=== PATIENT | male | born 1980 | race Caucasian/White ===

== ENCOUNTER 2017-02-05 14:35 | Emergency (ER) | payer MEDICAID ==
--- NOTE | 2017-02-05 15:20 | Emergency Department Record ---
History of Present Illness - General Chief complaint: Pain Stated complaint: RT RIB PAIN Time Seen by Provider: 02/05/17 15:14 Source: Patient, RN notes reviewed Mode of Arrival: Ambulatory - History of Present Illness Initial comments: right rib cage pain which started after a cough and he has had similiar problems like this in the past. smoker with a chronic cough Onset/Timin -: Days(s) Location: Right Severity scale (1-10): 8 Quality: Aching Improves with: Rest Associated Symptoms: Denies other symptoms - Related Data Home Medications Medication Instructions Recorded Confirmed Last Taken Albuterol Sulfate [Ventolin Hfa] 1 - 2 puff IH .EVERY 4-6 HRS PRN 02/05/1702/05 1 Day Ago ~02/04/17 Omeprazole 40 mg PO DAILY 02/05/17 02/05/17 1 Day Ago ~02/04/17 Previous Rx's Medication Instructions Recorded Hydrocodone/Acetaminophen [[place] 1 each PO Q6HR #14 tablet 02/05/17 5-325 Tablet] Naproxen [Naprosyn] 500 mg PO Q12H #30 tab.dr 02/05/17 Allergies Allergy/AdvReac Type Severity Reaction Status Date / Time No Known Drug Allergies Allergy Verified 02/05/17 14:51 Travel Screening - Travel/Exposure Within Last 30 Days Have you traveled within the last 30 days?: No - Travel/Exposure Within Last Year Have you traveled outside the [place] in the last year?: No - Additonal Travel Details Have you been exposed to anyone with a communicable illness?: No - Travel Symptoms Symptom Screening: None Review of Systems Reviewed: No additional complaints except as noted below Constitutional: Reports: As per HPI. Denies: Chills, Fever, Malaise, Night sweats, Weakness, Weight change Eyes: Reports: As per HPI. Denies: Eye discharge, Eye pain, Photophobia, Vision change ENT: Reports: As per HPI. Denies: Congestion, Dental pain, Ear pain, Epistaxis , Hearing loss, Throat pain Respiratory: Reports: As per HPI. Denies: Cough, Dyspnea, Hemoptysis, Stridor, Wheezes Cardiovascular: Reports: As per HPI. Denies: Arrhythmia, Chest pain, Dyspnea on exertion, Edema, Murmurs, Orthopnea, Palpitations, Paroxysmal nocturnal dyspnea, Rheumatic Fever, Syncope Endocrine: Reports: As per HPI. Denies: Fatigue, Heat or cold intolerance, Polydipsia, Polyuria Gastrointestinal: Reports: As per HPI. Denies: Abdominal pain, Constipation, Diarrhea, Hematemesis, Hematochezia, Melena, Nausea, Vomiting Genitourinary: Reports: As per HPI. Denies: Dysuria, Frequency, Hematuria, Incontinence, Retention, Testicular pain, Testicular mass, Urgency Musculoskeletal: Reports: As per HPI. Denies: Arthralgia, Back pain, Gout, Joint swelling, Myalgia, Neck pain Skin: Reports: As per HPI. Denies: Bruising, Change in color, Change in hair/ nails, Lesions, Pruritus, Rash Neurological: Reports: As per HPI. Denies: Abnormal gait, Confusion, Headache, Numbness, Paresthesias, Seizure, Tingling, Tremors, Vertigo, Weakness Psychiatric: Reports: As per HPI. Denies: Anxiety, Auditory hallucinations, Depression, Homicidal thoughts, Suicidal thoughts, Visual hallucinations Hematological/Lymphatic: Reports: As per HPI. Denies: Anemia, Blood Clots, Easy bleeding, Easy bruising, Swollen glands Past Medical History - SOCIAL HISTORY Smoking Status: Current some day smoker Alcohol Use: None Drug Use: None - RESPIRATORY Hx Asthma: Yes - CARDIOVASCULAR Hx Cardio Disorders: No - NEURO Hx Neuro Disorders: No - GI Hx GI Disorders: No - Hx Genitourinary Disorders: No - ENDOCRINE Hx Endocrine Disorders: No - MUSCULOSKELETAL Hx Musculoskeletal Disorders: No - PSYCH Hx Psych Problems: No - HEMATOLOGY/ONCOLOGY Hx Hematology/Oncology Disorders: No Family Medical History Any Significant Family History?: Yes Physical Exam - General General Appearance: Alert, Oriented x3, Cooperative, No acute distress - Head Head exam: Normal inspection - Eye Eye exam: Normal appearance, PERRL Pupils: Normal accommodation - ENT ENT exam: Normal exam, Mucous membranes moist, Normal external ear exam, Normal orophraynx, TM's normal bilaterally Ear exam: Normal external inspection. negative: External canal tenderness Nasal Exam: Normal inspection. negative: Discharge, Sinus tenderness Mouth exam: Normal external inspection, Tongue normal Teeth exam: Normal inspection. negative: Dental caries Throat exam: Normal inspection. negative: Tonsillar erythema, Tonsillar exudate - Neck Neck exam: Normal inspection, Full ROM. negative: Tenderness - Respiratory Respiratory exam: Normal lung sounds bilaterally, Other (reproducible pain on palpation right chest wall). negative: Respiratory distress - Cardiovascular Cardiovascular Exam: Regular rate, Normal rhythm, Normal heart sounds - GI/Abdominal GI/Abdominal exam: Soft, Normal bowel sounds. negative: Tenderness - Rectal Rectal exam: Deferred - exam: Deferred - Extremities Extremities exam: Normal inspection, Full ROM, Normal capillary refill. negative: Tenderness - Back Back exam: Reports: Normal inspection, Full ROM. Denies: Muscle spasm, Rash noted, Tenderness - Neurological Neurological exam: Alert, Normal gait, Oriented X3, Reflexes normal - Psychiatric Psychiatric exam: Normal affect, Normal mood - Skin Skin exam: Dry, Intact, Normal color, Warm Course Vital Signs 02/05/17 14:43 Temperature 98.2 F Pulse Rate 64 Respiratory 18 Rate Blood Pressure 135/94 Pulse Ox 98 Medical Decision Making - Data Complexity MDM Data: X-Ray Ordered and/or Reviewed (chest xray neg) Disposition Clinical Impression: Thoracic myofascial strain Qualifiers: Encounter type: initial encounter Qualified Code(s): S29.019A - Strain of muscle and tendon of unspecified wall of thorax, initial encounter Disposition: Home, Self-Care Condition: (1) Good Instructions: Musculoskeletal Pain (ED) Additional Instructions: heat to chest follow up with primary in 4 days Prescriptions: Hydrocodone/Acetaminophen [[place] 5-325 Tablet] 1 each PO Q6HR #14 tablet Naproxen [Naprosyn] 500 mg PO Q12H #30 tab.dr Forms: Patient Portal Access Time of Disposition: 16:02 Quality - Quality Measures Quality Measures: N/A - Blood Pressure Screening Does Patient Have Any of the Following: No Blood Pressure Classification: Hypertensive Reading Systolic Measurement: 135 Diastolic Measurement: 94 Screening for High Blood Pressure: < First Hypertensive BP, F/U Documented > [ G8950] First Hypertensive Follow-up Interventions: Referral to alternative/primary care provider.
--- NOTE | 2017-02-06 11:33 | RADIOLOGY REPORT ---
EXAM: CHEST 2 VIEWS HISTORY: DIFFICULTY IN BREATHING. TECHNIQUE: Frontal and lateral views of the chest were performed. FINDINGS: The heart size is normal. No pulmonary vascular congestion. No definitive rib fracture deformity. No pneumothorax. IMPRESSION: NEGATIVE CHEST EXAMINATION. JOB NUMBER: [id number] MTDD
== END 2017-02-05 16:36 | disposition home or self-care (01) ==
LOC: ER 14:35
DX: S29.019A Strain of muscle and tendon of unspecified wall of thorax, initial encounter (principal); R05 Cough; R06.00 Dyspnea, unspecified; X50.0XXA Overexertion from strenuous movement or load, initial encounter; F17.210 Nicotine dependence, cigarettes, uncomplicated
CPT/HCPCS: 71020; 99283

== ENCOUNTER 2017-05-22 13:23 | Emergency (ER) | payer MEDICAID ==
--- NOTE | 2017-05-22 13:28 | Emergency Department Record ---
History of Present Illness - General Stated Complaint: ABDOMINAL PAIN Time Seen by Provider: 05/22/17 13:26 Source: Patient Mode of Arrival: Ambulatory Limitations: No limitations - History of Present Illness Initial Comments: 36 yo male presents with LLQ pain for the last 5 days. The area has been tender constantly and he feels bloated. No fever. He still has a good appetite. No diarrhea and he is passing gas. No fevers or chills. No history of GI problems. No history of colonoscopy. The pain does not radiate and is not affected by eating, urinating. No blood in the stools. MD Complaint: Abdominal pain -: Days(s) (5) Location: LLQ Radiation: LLQ Migration to: LLQ Quality: Aching Improves With: Nothing Worsens With: Nothing Context: Other Associated Symptoms: Denies other symptoms - Related Data Previous Rx's Medication Instructions Recorded Hydrocodone/Acetaminophen [[place] 1 each PO Q6H #16 tablet 05/22/17 5-325 Tablet] Allergies Allergy/AdvReac Type Severity Reaction Status Date / Time No Known Drug Allergies Allergy Verified 02/05/17 14:51 Review of Systems Constitutional: Denies: Chills, Fever, Malaise, Weakness Eyes: Denies: Eye discharge ENT: Denies: Congestion, Throat pain Respiratory: Denies: Cough, Dyspnea Cardiovascular: Denies: Chest pain, Palpitations, Syncope Endocrine: Denies: Fatigue Gastrointestinal: Reports: Abdominal pain. Denies: Constipation, Diarrhea, Hematemesis, Hematochezia, Melena, Nausea, Vomiting Genitourinary: Denies: Dysuria, Frequency, Hematuria Musculoskeletal: Denies: Arthralgia, Back pain, Joint swelling, Myalgia Skin: Denies: Bruising, Change in color, Rash Neurological: Denies: Confusion, Headache, Numbness, Weakness Psychiatric: Denies: Anxiety Hematological/Lymphatic: Denies: Blood Clots, Easy bleeding, Easy bruising, Swollen glands Past Medical History - SOCIAL HISTORY Smoking Status: Current some day smoker Drug Use: None - RESPIRATORY Hx Asthma: Yes - CARDIOVASCULAR Hx Cardio Disorders: No - NEURO Hx Neuro Disorders: No - GI Hx GI Disorders: No - Hx Genitourinary Disorders: No - ENDOCRINE Hx Endocrine Disorders: No - MUSCULOSKELETAL Hx Musculoskeletal Disorders: No - PSYCH Hx Psych Problems: No - HEMATOLOGY/ONCOLOGY Hx Hematology/Oncology Disorders: No Physical Exam - General General Appearance: Alert, Oriented x3, Cooperative, No acute distress Limitations: No limitations - Head Head exam: Normal inspection - Eye Eye exam: Normal appearance. negative: Conjunctival injection, Scleral icterus - ENT ENT exam: Normal exam Ear exam: Normal external inspection Nasal Exam: Normal inspection Mouth exam: Normal external inspection Teeth exam: Normal inspection Throat exam: Normal inspection - Neck Neck exam: Normal inspection, Full ROM. negative: Tenderness - Respiratory Respiratory exam: Normal lung sounds bilaterally. negative: Accessory muscle use, Respiratory distress, Rhonchi, Stridor, Wheezes - Cardiovascular Cardiovascular Exam: Regular rate, Normal rhythm, Normal heart sounds - GI/Abdominal GI/Abdominal exam: Soft, Normal bowel sounds, Guarding, Tenderness (Tender in the LLQ, no mass, remaining abdomen is very soft and not tender). negative: Distended, Rebound - Rectal Rectal exam: Deferred - exam: Deferred - Extremities Extremities exam: Normal inspection, Full ROM, Normal capillary refill. negative: Tenderness - Back Back exam: Reports: Normal inspection, Full ROM. Denies: CVA tenderness (R), CVA tenderness (L), Muscle spasm, Rash noted, Tenderness - Neurological Neurological exam: Alert, Normal gait, Oriented X3 - Psychiatric Psychiatric exam: Normal affect, Normal mood - Skin Skin exam: Dry, Intact, Normal color, Warm Course - Reevaluation(s) Reevaluation #1: 05/22/17 14:40 No acute changes on the CBC or UA 05/22/17 15:03 EKG was ordered due to initial K level was reported at 1.6 Repeat K was 3.6 EKG NSR, normal intervals, [place] normal, No acute ST changes. LVH. No old. 05/22/17 16:11 The CMP and UA are normal 05/22/17 17:[address] scan report was reviewed. No acute findings on the abdomen. He have a very small R pleural effusion. He has had mild cough recently. He now reports he has been shoveling a lot of snow and he pushes the shovel with his abdomen in the area of the pain. Given the normal labs, normal abdominal and pelvic CT this may be related to the physical exertion as no acute findings are in the Left abdomen. 05/22/17 18:19 The CXR was reviewed. Tiny effusion on the R The patient is not symptomatic. He was given a copy of the CT and XR. He has follow up with his PCP and a Protection Consultant for his asthma already. We discussed the importance of this follow up and reasons to return to the ED. Medical Decision Making - Lab Data Result diagrams: 05/22/17 13:35 05/22/17 13:35 Disposition Disposition: Discharge Clinical Impression: Pleural effusion, LLQ pain Disposition: Home, Self-Care Condition: (1) Good Instructions: Pleural Effusion (ED), Abdominal Pain (ED) Additional Instructions: Call your doctor tomorrow to follow up this ER visit including the results of the tests Take the CT report and the copy of your XR to the appointment Return to be seen if you have uncontrolled pain, fever, vomiting or any new concerns Prescriptions: Hydrocodone/Acetaminophen [[place] 5-325 Tablet] 1 each PO Q6H #16 tablet Forms: Patient Portal Access Time of Disposition: 18:21 Quality - Quality Measures Quality Measures: N/A - Blood Pressure Screening Does Patient Have Any of the Following: No Blood Pressure Classification: Hypertensive Reading Systolic Measurement: 168 Diastolic Measurement: 101 Screening for High Blood Pressure: < Pre-Hypertensive BP, F/U Documented > [ G8950] Pre-Hypertensive Follow-up Interventions: Referral to alternative/primary care provider.
[2017-05-22] MEDS ORDERED: 0.9 % SODIUM CHLORIDE 1,000 ML BAG IV ONE ×2 (13:35→14:40)
[2017-05-22] MEDS ORDERED: MORPHINE SULFATE 5 MG/ML PFS IVP ONE ×2 (13:36→14:40)
[2017-05-22 13:57] LABS: BASO % 0.3 % (0-6); EOS % 2.5 % (0-6); GRAN % 61.7 % (47-80); HEMATOCRIT 44.9 % (42.0-52.0); HEMOGLOBIN 15.4 gm/dl (14.0-18.0); LYMPH % 27.2 % (16-45); MEAN CELL VOLUME 82.1 fl (81-97); MEAN CORPUSCULAR HEMOGLOBIN 28.2 pg (27-33); MEAN CORPUSCULAR HGB CONC 34.3 g/dl (32-36); MEAN PLATELET VOLUME 8.6 fl (7.4-10.4); MONO % 8.3 % (0-9); PLATELET COUNT 450 K/uL (130-400); RED BLOOD COUNT 5.47 M/uL (4.40-5.70); RED CELL DISTRIBUTION WIDTH 15.2 % (11.5-14.5); WHITE BLOOD COUNT W/O DIFF 9.1 K/uL (4.2-12.2)
[2017-05-22 14:38] LABS: URINE APPEARANCE CLEAR; URINE BILIRUBIN NEGATIVE (NEGATIVE); URINE BLOOD NEGATIVE (NEGATIVE); URINE COLOR YELLOW; URINE GLUCOSE (UA) NEGATIVE (NEGATIVE); URINE KETONE NEGATIVE (NEGATIVE); URINE LEUKOCYTE ESTERASE NEGATIVE (NEGATIVE); URINE NITRITE NEGATIVE (NEGATIVE); URINE PROTEIN NEGATIVE (NEGATIVE); URINE UROBILINOGEN 0.2 E.U./dL (0.20 - 1.00)
[2017-05-22 14:49] LABS: BLOOD UREA NITROGEN 5 mg/dL (6-20); CREATININE 0.7 mg/dL (0.7-1.2); EST GLOMERULAR FILTRATION RATE > 60 mL/min
[2017-05-22 14:50] LABS: TOTAL PROTEIN 6.9 g/dL (6.6-8.7)
[2017-05-22 14:52] LABS: GLUCOSE,RANDOM 98 mg/dL (74-109)
[2017-05-22 14:55] LABS: ALBUMIN 4.3 g/dL (4.0-5.0); ALKALINE PHOSPHATASE 88 U/L (40-129); ALT/SGPT 12 U/L (<41); AST/SGOT 14 U/L (10.0-50.0); BILIRUBIN,DIRECT < 0.2 mg/dL (0-0.3); LIPASE 30 U/L (13-60)
--- NOTE | 2017-05-23 07:39 | RADIOLOGY REPORT ---
EXAM: CHEST, TWO VIEWS HISTORY: COUGH, SMALL RIGHT PLEURAL EFFUSION. TECHNIQUE: PA and lateral views of the chest were obtained. Comparison: Two view chest 02/05/17. FINDINGS: The heart size is within normal limits, however, there is a new right pleural effusion compared with the prior study. This is seen blunting both the right lateral and posterior costophrenic angles. There is some streaky infiltrate in the right middle lobe as well also new. There is fracture deformity of multiple right ribs laterally including the sixth, seventh , and eighth. These may have all been present previously, but there is greater pleural opacity along the right mid hemithorax laterally today compared to the prior study as well with questionably greater displacement at the site of the right sixth rib fracture compared to the prior study and clinical correlation as to any more recent injury along the right lateral chest wall since the exam is suggested. No definite pneumothorax seen. The left lung appears expanded and clear. IMPRESSION: 1. NEW RIGHT PLEURAL EFFUSION SINCE 02/05/17 WITH SOME MILD STREAKY INFILTRATE IN THE RIGHT MIDDLE LOBE. 2. OLD FRACTURES OF THE RIGHT SEVENTH AND EIGHTH RIBS, BUT QUESTIONABLY A NEW FRACTURE IN THE RIGHT SIXTH RIB LATERALLY COMPARED TO THE PRIOR STUDY WITH GREATER PLEURAL OPACITY ALONG THE RIGHT LATERAL CHEST WALL WHICH COULD BE AN ASSOCIATED HEMATOMA. CORRELATION WITH ANY RECENT INJURY IN THE RIGHT LATERAL CHEST WALL IS SUGGESTED AND IF CLINICALLY WARRANTED, FOLLOW-UP CHEST CT MIGHT BE USEFUL. JOB NUMBER: [id number] [facility]
== END 2017-05-22 18:30 | disposition home or self-care (01) ==
LOC: ER 13:23
DX: R10.32 Left lower quadrant pain (principal); J90 Pleural effusion, not elsewhere classified; R14.0 Abdominal distension (gaseous); R05 Cough
CPT/HCPCS: 99284 ×2; 96376; 96374; 83690; 85025; 80076; 80048; 81003; 71046; 93005; 93010; J2270; J7030